=== PATIENT | female | born 1940 | race Caucasian/White ===

== ENCOUNTER 2018-07-05 16:18 | Emergency (ER) | payer MEDICARE, MEDICAID ==
[~2018-07-05] VITALS: Ht 165.1 cm; Wt 71.4 kg
[2018-07-05 16:23] VITALS: BP 137/65; PULSE 67; RESP 18; Ht 165.1 cm; Wt 71.4 kg
--- NOTE | 2018-07-05 16:55 | ERD ---
ER Documentation Chief Complaint Chief Complaint generalize body itching x1mth HPI The patient is a 77-year-old female, presenting to the ER because of generalized body pruritus for more than a month, denies any fever, skin rash. She denies any new clothing/detergent/soap/food.. Her does not have similar sy mptoms. She denies fever, chills, neck pain, chest pain, dyspnea, abdominal pain, vomiting, dysuria. Past medical history: Hypertension, anxiety ROS All systems reviewed and are negative except as per history of present illness. Medications Home Meds Active Scripts Triamcinolone Acetonide* (Kenalog*) 0.1%-15GM Cr, 1 APPLIC TOP TID, #1 TUB Prov:EZ WORRELL MD 07/05/18 Diphenhydramine Hcl* (Benadryl*) 50 Mg Cap, 50 MG PO Q6H PRN for ITCHING/RASH, #20 CAP Prov:EZ WORRELL MD 07/05/18 Allergies Allergies: Coded Allergies: No Known Drug Allergy (Verified Allergy, Severe, 11/17/08) Physical Exam Vitals Vital Signs Date Temp Pulse Resp B/P (MAP) Pulse Ox O2 O2 Flow FiO2 Time Delivery Rate 07/05/18 98.4 67 18 137/65 98 16:23 (89) Physical Exam Const: No acute distress. Head: Atraumatic. Eyes: Normal Conjunctiva. ENT: Normal External Ears, Nose and Mouth. Neck: Full range of motion. No meningismus. Resp: Clear to auscultation bilaterally. Cardio: Regular rate and rhythm. Abd: Soft, non distended, normal bowel sounds, non tender. Skin: No petechiae or rashes. Mild excoriation, no vesicles/pustules Back: No midline or flank tenderness. Ext: No cyanosis, or edema. Neur: Awake and alert. No focal deficit Psych: Normal Mood and Affect. Procedures/MDM MEDICAL MAKING DECISION: The patient is a 77-year-old female, presenting with acute pruritus of unclear etiology, most likely related to her anxiety. She is stable for present follow-up The differential diagnoses considered include but are not limited to anxiety attack, panic attack, dermatitis, allergic dermatitis, contact dermatitis Departure Diagnosis: Primary Impression: Rash and other nonspecific skin eruption Condition: Good Comments She was discharge with Kenalog cream and Benadryl I discussed the findings with the patient. I advised the patient to follow-up with the primary physician in about 2-3 days, sooner if needed and return if any concern. Disclaimer: Inadvertent spelling and grammatical errors are likely due to EHR/dictation software use and do not reflect on the overall quality of patient care. Also, please note that the electronic time recorded on this note does not necessarily reflect the actual time of the patient encounter. EZ WORRELL MD July 05, 2018 16:55
[2018-07-05] MEDS ORDERED: TRIA15CR55 TOP (17:03)
[2018-07-05] MEDS ORDERED: BEN50 PO (17:03)
== END 2018-07-05 17:12 | disposition home or self-care (01) ==
LOC: E/R 16:18
DX: L29.9 Pruritus, unspecified (principal); I10 Essential (primary) hypertension
CPT/HCPCS: 99283